=== PATIENT | male | born 1985 | race Caucasian/White ===

== ENCOUNTER 2020-11-07 10:43 | Emergency (ER) | payer SELFPAY ==
[2020-11-07 11:14] VITALS: BP 188/88; PULSE 94; RESP 18; TEMP 36.8; O2SAT 98
--- NOTE | 2020-11-07 11:52 | ED.GENADULT ---
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 any back pain injury or trauma symptoms began today presents with normal gait has not taken anything for his symptoms denies any recent illness or other complaints and is resting comfortably in the room upon arrival Related Data Allergies Allergy/AdvReac Type Severity Reaction Status Date / Time No Known Allergies Allergy Verified 11/07/20 11:20 Review of Systems Review of Systems: All systems reviewed & are unremarkable except as noted in HPI and below PMFSH Social History Social History (Updated 11/07/20 @ 11:53 by Sameer Laguna PA-C) Smoking status: Never smoker Gender identity (if verbalized by the patient): Male Exam Narrative: Exam Narrative: GENERAL: Well-appearing, well-nourished, and in no acute distress. HEAD: Normocephalic, atraumatic. EYES: PERRLA and EOMI. ENT: Nares clear, no rhinorrhea or epistaxis. Mucous membranes moist. CHEST: Clear to auscultation. No respiratory distress. No wheezes rales or rhonchi HEART: Regular rate and rhythm. No murmur heard. EXTREMITIES: Normal range of motion. No edema. No midline lumbar tenderness to palpation SKIN: Warm, dry, no rash. NEURO: No focal deficits. Alert and oriented x3. Cranial nerves II through XII grossly intact. Normal speech and gait. Motor and sensory intact and symmetrical in the extremities PSYCH: Normal mood and affect. Course Course Emergency Course: Patient in the room no distress aware of case findings treatment plan diagnosis agreeing to follow-up as directed or to return if symptoms worsen or concerns Vital Signs Vital signs: Vital Signs Temperature 98.2 F 11/07/20 11:14 Pulse Rate 94 11/07/20 11:14 Respiratory Rate 18 11/07/20 11:14 Blood Pressure 188/88 H 11/07/20 11:14 Pulse Oximetry 98 11/07/20 11:14 Temperature 98.2 F 11/07/20 11:14 Pulse Rate 94 11/07/20 11:14 Respiratory Rate 18 11/07/20 11:14 Blood Pressure 188/88 H 11/07/20 11:14 Pulse Oximetry 98 11/07/20 11:14 Medical Decision Making MDM Narrative Medical decision making narrative: Patients pain is positional in nature and localized to back without signs of cord compression or cauda equina based on neurological exam, skeletal exam and history. No fever or other significant factors to suggest osteomyelitis or spinal epidural abscess. No symptoms or signs to suggest pain is referred from abdominal or / cardiopulmonary sources. No pulsatile masses noted on exam. Patient ambulates with steady gait and is stable for outpatient management given case findings. Vital Signs Vital Signs: Vital Signs Temperature 98.2 F 11/07/20 11:14 Pulse Rate 94 11/07/20 11:14 Respiratory Rate 18 11/07/20 11:14 Blood Pressure 188/88 H 11/07/20 11:14 Pulse Oximetry 98 11/07/20 11:14 Temperature 98.2 F 11/07/20 11:14 Pulse Rate 94 11/07/20 11:14 Respiratory Rate 18 11/07/20 11:14 Blood Pressure 188/88 H 11/07/20 11:14 Pulse Oximetry 98 11/07/20 11:14 Discharge Plan Discharge Clinical Impression: Acute low back pain with sciatica Patient Disposition: Home, Self-Care Condition: Stable Instructions: Antibiotic Form, Lumbar Radiculopathy (ED) Additional Instructions: Medications as needed and prescribed. Limit lifting and bending. You may apply heat or cold to the area as needed. Follow up with your doctor for further care in the next 7 days. Contact your doctor or return to the emergency department if you develop problems
[2020-11-07 12:31] VITALS: BP 158/109; PULSE 94; RESP 18; O2SAT 99
== END 2020-11-07 12:33 | disposition home or self-care (01) ==
PROVIDERS: Emergency Provider Emergency Medicine; PCP Family Medicine
DX: M54.42 Lumbago with sciatica, left side (principal)
CPT/HCPCS: 99283

== ENCOUNTER → 2020-11-26 14:39 | Outpatient (CLI) | payer SELFPAY ==
--- NOTE | ~2020-11-26 | XR_ITS ---
EXAMINATION: XR chest 2V DATE: 11/26/2020 15:08 INDICATION: Cough for 10 years. TECHNIQUE: Frontal and lateral views of the chest were obtained. COMPARISON: None. FINDINGS: Calcified pulmonary nodules and calcified mediastinal lymph nodes are consistent with old g ranulomatous disease. No pleural effusion or pneumothorax. The heart size is normal. IMPRESSION: 1. No acute cardiopulmonary disease. Reviewed, dictated and finalized at location A.
--- NOTE | ~2020-11-26 | XR_ITS ---
EXAMINATION: XR hip LT 2V w AP pelvis EXAM DATE: 11/26/2020 15:09 INDICATION: LT post hip pain 2weeks no injury radiates down lt leg. TECHNIQUE: Left hip frontal, 'frog leg' projections for interpretation. Frontal projection pelvis. There is no prior study for comparison. FINDINGS: Smooth left hip femoral head contour, no radiographic evidence of avascular necrosis. The hip joints are symmetric, joint spaces are maintained and no bony productive changes. There are no a cute fractures or dislocations identified. There is no subcutaneous gas. The soft tissue is unremar kable. There are no radiopaque foreign bodies. IMPRESSION: Normal x-ray exam. Reviewed, dictated and finalized at location A. IMPRESSION: Normal x-ray exam.
--- NOTE | ~2020-11-26 | XR_ITS ---
EXAMINATION: XR lumbar spine 2-3V EXAM DATE: 11/26/2020 15:09 INDICATION: Left hip pain posteriorly radiating to lower leg for 2 weeks. No known recent injury. TECHNIQUE: Lumber spine frontal, lateral, lateral L5-S1 projections for interpretation. There is no prior study for comparison. FINDINGS: There is mild lumbar levoscoliosis. The vertebral bodies are aligned in the AP dimension. Mild lower lumbar facet arthropathy. Vertebral body and disc heights are well-maintained. Sacrum, sac roiliac joints, sacral arcuate lines are intact. Paraspinal soft tissue is unremarkable. There are no bony erosions identified. IMPRESSION: 1. Mild lower lumbar facet arthropathy. 2. Mild levoscoliosis. Reviewed, dictated and finalized at location A.
== END ==
LOC: EXPCRAD 14:42
PROVIDERS: PCP Emergency Medicine; Visit Provider Emergency Medicine
DX: R20.2 Paresthesia of skin (principal); R05 Cough
CPT/HCPCS: 71046; 72100; 73502

== ENCOUNTER 2020-12-03 15:12 | Outpatient (CLI) | payer SELFPAY ==
[2020-12-03 15:51] LABS: Hematocrit 52.3 % (42.0-52.0); Hemoglobin 18.6 g/dL (14.0-18.0); Mean Corpuscular HGB Conc 35.6 g/dl (32-36); Mean Corpuscular Hemoglobin 32.7 pg (26-34); Mean Corpuscular Volume 92.1 fl (80-100); Mean Platelet Volume 8.9 fl (7.4-10.4); Platelet Count Result 348 k/mm3 (150-375); Red Blood Count 5.68 M/mm3 (4.6-6.20); Red Cell Distribution Width 13.2 % (11.5-14.5); White Blood Count 8.1 K/mm3 (4.5-10.0)
[2020-12-03 15:54] LABS: Add Urine Microscopic? YES; Appearance Urine Cloudy (Clear); Bilirubin Urine Negative (Negative); Blood Urine Negative (Negative); Color Urine Yellow (Yellow); Glucose Urine UA Negative (Negative); Ketones Urine Negative (Negative); Leukocyte Esterase Ur Negative LEU/UL (NEGATIVE); Mucus Urine Rare /lpf; Nitrate Urine Negative (Negative); Protein Urine Negative (Negative); Urobilinogen Urine Negative mg/dL (<2.0); WBC Urine 0-3 /hpf (0-3)
[2020-12-03 16:00] LABS: Ethanol < 10 mg/dL (<10); Hemoglobin A1C 4.7 % (<5.7)
[2020-12-03 16:03] LABS: Alanine Aminotransferase 20 U/L (4-50); Albumin Level 4.8 g/dL (3.5-5.1); Alkaline Phosphatase 46 U/L (38-126); Anion Gap 8 mmol/L (8-16); Aspartate Amino Transferase 28 U/L (17-59); Bilirubin,Total 0.8 mg/dL (0.2-1.3); Blood Urea Nitrogen 11 mg/dL (9-20); Calcium 9.3 mg/dL (8.4-10.2); Carbon Dioxide 29 mmol/L (22-30); Chloride 101 mmol/L (98-107); Cholesterol 201 mg/dL (0-200); Creatine Kinase 46 U/L (55-170); Estimated Glomerular Filt Rate > 60; Glucose 96 mg/dL (75-110); HDL Direct 72 mg/dL; Potassium 3.9 mmol/L (3.4-5.0); Sodium 138 mmol/L (137-145); Triglycerides 71 mg/dL (<150)
[2020-12-03 16:05] LABS: Rheumatoid Factor < 8.6 IU/ML (<12)
[2020-12-03 16:14] LABS: LDL Cholesterol Direct 111 mg/dL
[2020-12-03 16:34] LABS: Creatinine Urine 126.5 mg/dL
[2020-12-03 16:39] LABS: Microalbumin Urine Random 12.7 mg/L (0-16.7)
[2020-12-03 16:44] LABS: Erythrocyte Sedimentation Rate 2 mm/hr (0-20)
[2020-12-03 16:51] LABS: Free T4 Free Thyroxine 0.93 ng/mL (0.78-2.19)
[2020-12-03 17:10] LABS: Folic Acid > 20.0 ng/mL (2.76->20)
[2020-12-06 06:47] LABS: Amphetamines negative; Barbiturates negative; Benzodiazepines negative; Cocaine Metabolites negative; Marijuana Metabolites POSITIVE; PCP negative
== END 2020-12-03 15:13 | disposition home or self-care (01) ==
LOC: ANHLAB 15:14
PROVIDERS: PCP Emergency Medicine; Visit Provider Emergency Medicine
DX: R03.0 Elevated blood-pressure reading, without diagnosis of hypertension (principal); R20.2 Paresthesia of skin
CPT/HCPCS: 36415; 80053; 80061; 80307; 81001; 82043; 82550; 82607; 82746; 83036; 84439; 84443; 85027; 85652; 86038; 86430

== ENCOUNTER 2021-02-21 09:58 | Emergency (ER) | payer SELFPAY ==
[2021-02-21 10:06] VITALS: BP 133/90; PULSE 82; RESP 16; TEMP 37; O2SAT 99
[2021-02-21 10:14] VITALS: BP 133/90; PULSE 82; RESP 16; TEMP 37; O2SAT 99
--- NOTE | 2021-02-21 10:24 | ED.UPPEXIN ---
HPI - Extremity Injury (Upper) General Chief Complaint: Extremity Injury, Upper Stated Complaint: left wrist pain Source: patient and RN notes reviewed Limitations: no limitations History of Present Illness HPI narrative: The patient who is a right-handed director of restaurants, presents with left wrist pain. Patient states he is atraumatic onset of left wrist pain while working / at work, yesterday. He complains of mild pain and edema at the distal ulna. No snuffbox tenderness, direct injury, bleeding, deformity-but there is mild redness and edema Related Data Home Medications Medication Instructions Recorded Confirmed escitalopram oxalate mg 02/21/21 losartan 02/21/21 Allergies Allergy/AdvReac Type Severity Reaction Status Date / Time No Known Allergies Allergy Verified 11/07/20 11:20 Review of Systems Review of Systems: Narrative: General/Constitutional: No weight loss,fever Eyes: N0: Redness,discharge Ears/Nose/Throat: No: Epistaxis,ear discharge Respiratory: Denies: Hemoptysis Gastrointestinal: No Vomiting, Bleeding-rectal Skin: no eruption, reports mild edema/lump of wrist PMFSH Social History Social History (Updated 11/07/20 @ 11:53 by Sameer Laguna PA-C) Smoking status: Never smoker Gender identity (if verbalized by the patient): Male Comments At time of signature, agree with nursing past medical, surgical, social and family history. There is no relevant family history pertinent to the presenting complaint Exam Narrative: Exam Narrative: General Appearance: Well appearing, , Conjunctiva clear Mouth/Throat: Normal appearing, Normal lips, Supple Respiratory: Airway patent, No respiratory distress MS-wrist: Normal strength (mostly intact, limited flexion/extension by pain), Tenderness (distal ulna, with mild decreased ROM), Swelling -distal ulna, Other (no anterior drawer, no collateral laxity, no snuffbox tenderness Skin: Warm, Dry, Normal color Neurological: A&O x3, Normal affect Course Vital Signs Vital signs: Vital Signs Temperature 98.6 F 02/21/21 10:06 Pulse Rate 82 02/21/21 10:06 Respiratory Rate 16 02/21/21 10:06 Blood Pressure 133/90 02/21/21 10:06 Pulse Oximetry 99 02/21/21 10:06 Temperature 98.6 F 02/21/21 10:14 Pulse Rate 82 02/21/21 10:14 Respiratory Rate 16 02/21/21 10:14 Blood Pressure 133/90 02/21/21 10:14 Pulse Oximetry 99 02/21/21 10:14 Discharge Plan Discharge Clinical Impression: Fibrocartilage, triangular complex, injury Qualifiers: Encounter type: initial encounter Laterality: left Qualified Code(s): S69.82XA - Other specified injuries of left wrist, hand and finger(s), initial encounter Patient Disposition: Home, Self-Care Condition: Stable Instructions: Wrist Sprain (ED) Additional Instructions: Get and wear durable, reinforce wrist splint Return if worsens Prescriptions: New acetaminophen-codeine 300-30 mg tablet 1 tablet PO HS PRN (Reason: pain) Qty: 10 RF: 0 No Action losartan 25 mg tablet RF: 0 escitalopram oxalate 10 mg tablet RF: 0 Follow-up/Referrals: Tay Henriquez MD [Primary Care Provider] - Stand Alone Forms: Work/School Release IP
== END 2021-02-21 10:30 | disposition home or self-care (01) ==
PROVIDERS: Emergency Provider Emergency Medicine; PCP Emergency Medicine
DX: M25.532 Pain in left wrist (principal); S69.82XA Other specified injuries of left wrist, hand and finger(s), initial encounter; X58.XXXA Exposure to other specified factors, initial encounter; Y99.0 Civilian activity done for income or pay; I10 Essential (primary) hypertension
CPT/HCPCS: 99213; G0463

== ENCOUNTER 2023-04-02 21:18 | Emergency (ER) | payer OTHER, SELFPAY ==
--- NOTE | ~2023-04-02 | CT_ITS ---
EXAMINATION: CT facial & cervical spine wo DATE: 04/02/2023 22:15 INDICATION: Head injury. TECHNIQUE: Computed tomography (CT) of the maxillofacial region and cervical spine was performed with out intravenous contrast. Automated exposure control and iterative reconstruction technique were empl oyed. The dose-length product was 521.26 mGy-cm. COMPARISON: None FINDINGS: MAXILLOFACIAL CT: There is a right frontal scalp laceration. The orbits are normal. There is mild mucosal thickening in the ethmoid sinuses. The mastoid air cells are normal. There are carious lesions of 18, 19, and 31. CERVICAL SPINE CT: Calcified mediastinal lymph nodes are consistent with old granulomatous disease. There is kyphosis of cervical spine. There is 8 degrees levocurvature of cervicothoracic spine. Vertebral body heights ar e normal. There is mildly decreased disc height at C5-C6 and C6-C7. The following disc levels are spe cifically discussed: C2-C3: There is no uncovertebral joint osteoarthritis. There is mild bilateral facet joint osteoarthr itis. There is no neural foraminal stenosis. There is no central canal stenosis. C3-C4: There is no uncovertebral joint osteoarthritis. There is mild bilateral facet joint osteoarthr itis. There is no neural foraminal stenosis. There is no central canal stenosis. C4-C5: There is no uncovertebral joint osteoarthritis. There is no facet joint osteoarthritis. There is no neural foraminal stenosis. There is no central canal stenosis. C5-C6: There is mild right uncovertebral joint osteoarthritis. There is no facet joint osteoarthritis . There is no neural foraminal stenosis. There is no central canal stenosis. C6-C7: There is no uncovertebral joint osteoarthritis. There is no facet joint osteoarthritis. There is no neural foraminal stenosis. There is mild central canal stenosis. C7-T1: There is no uncovertebral joint osteoarthritis. There is mild bilateral facet joint osteoarthr itis. There is no neural foraminal stenosis. There is no central canal stenosis. IMPRESSION: 1. No fracture. 2. Mild cervical spondylosis. 3. Dental disease. Reviewed, dictated and finalized at location A.
--- NOTE | ~2023-04-02 | CT_ITS ---
EXAMINATION: CT brain wo con DATE: 04/02/2023 22:15 INDICATION: Head injury. TECHNIQUE: Computed tomography (CT) of the head was performed without intravenous contrast. The mA wa s adjusted according to patient size. Iterative reconstruction technique was employed. The dose-lengt h product was 681.00 mGy-cm. COMPARISON: None FINDINGS: There is no intracranial hemorrhage, acute infarction, or abnormal intracranial mass lesion . The ventricles are normal in size. The paranasal sinuses are clear. There is a right frontal scalp laceration. The mastoid air cells are normal. The orbits are normal. IMPRESSION: 1. Normal brain. Reviewed, dictated and finalized at location A. IMPRESSION: 1. Normal brain.
[2023-04-02 21:14] VITALS: BP 151/91; PULSE 99; RESP 14; TEMP 36.6; O2SAT 100
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
[2023-04-02] MEDS: TETANUS,DIPHTHERIA,AC PERTUSSIS ADULT (0.5 ML) BOOSTRIX IM (21:44)
[2023-04-02] MEDS: ACETAMINOPHEN 500 MG TABLET 1000 MG PO (21:45)
[2023-04-03] VITALS: BP 134/80; PULSE 104; RESP 15; O2SAT 98
== END 2023-04-03 00:07 | disposition home or self-care (01) ==
LOC: ANHED 22:32
PROVIDERS: Emergency Provider Emergency Medicine; PCP Emergency Medicine
DX: S01.81XA Laceration without foreign body of other part of head, initial encounter (principal); S01.01XA Laceration without foreign body of scalp, initial encounter; Z23 Encounter for immunization; I10 Essential (primary) hypertension; Y00.XXXA Assault by blunt object, initial encounter
CPT/HCPCS: 12001; 12013; 70450; 70486; 72125; 90471; 90715; 99284; A9270